=== PATIENT | male | born 1950 | race Caucasian/White ===

== ENCOUNTER → 2021-01-28 | Outpatient (CLI) | payer MEDICARE, OTHER ==
[~2021-01-28] MED LIST: AMIT150T PO; AMLO-150 PO; HYDROCHLOROTH12.5 MG PO; LIDO700A30 TP; LOSA100T14 PO; METF10002 PO; TRAM50TA2 PO; TRIA10VI INJ; VITAMIN B12 INJ
== END | disposition home or self-care (01) ==
LOC: RAD 13:12
PROVIDERS: ATTEND Physician Assistant Medical
DX: S89.92XD Unspecified injury of left lower leg, subsequent encounter (principal); S90.02XA Contusion of left ankle, initial encounter; X58.XXXA Exposure to other specified factors, initial encounter; Y93.89 Activity, other specified; Y92.89 Other specified places as the place of occurrence of the external cause; Y99.8 Other external cause status